=== PATIENT | female | born 1985 | race Hispanic/Latino ===

== ENCOUNTER 2018-01-13 21:14 | Emergency (ER) | payer SELFPAY ==
[2018-01-13 21:23] VITALS: TEMP 99.1
--- NOTE | 2018-01-13 21:26 | C.PDOC ---
History Of Present Illness lynn and gricelda after patient found running on the street. According to jc the patient was in an argument with her significant other. Upon arrival, she was very agitated, combative and violent with staff. Time Seen by Provider: 01/13/18 21:26 Chief Complaint (Nursing): Substance Abuse History Per: Patient History/Exam Limitations: other (extremely combative upon arrival) Onset/Duration Of Symptoms: Hrs Current Symptoms Are (Timing): Still Present Suicide/Self Injury Attempted (Context): None Modifying Factor(s): Alcohol Severity: Severe Pain Scale Rating Of: 6 Associated Symptoms: Anger, Anxiety, Agitation Involuntary Hold By: None Recent travel outside of the [place]: No Additional History Per: EMS Past Medical History Reviewed: Historical Data, Nursing Documentation, Vital Signs Vital Signs: Last Vital Signs Temp 99.1 F 01/13/18 21:18 Pulse 109 H 01/13/18 21:18 Resp 20 01/13/18 21:18 BP 111/71 01/13/18 21:18 Pulse Ox 95 01/13/18 21:18 Family History: States: No Known Family Hx - Social History Hx Alcohol Use: No (unknown) Hx Substance Use: No (unknown) Review Of Systems Review Of Systems: ROS cannot be obtained secondary to pt's inabilty to answer questions. Physical Exam - Physical Exam Appears: Combative, Agitated Skin: Warm, Dry Head: Normacephalic Eye(s): bilateral: Normal Inspection Oral Mucosa: Moist Neck: Supple Chest: Symmetrical Cardiovascular: Rhythm Regular Respiratory: No Rales, No Rhonchi Gastrointestinal/Abdominal: Soft, No Tenderness, No Distention Back: Normal Inspection Extremity: Normal ROM Extremity: Bilateral: Atraumatic Neurological/Psych: Oriented x3 Gait: Unable To Assess ED Course And Treatment - Laboratory Results Result Diagrams: 01/13/18 22:05 01/13/18 22:05 O2 Sat by Pulse Oximetry: 95 (RA) Pulse Ox Interpretation: Normal Reevaluation Time: 06:14 Reassessment Condition: Improved Disposition Counseled Patient/Family Regarding: Studies Performed, Diagnosis, Need For Followup - Disposition Referrals: [facility] [Outside] Disposition: HOME/ ROUTINE Disposition Time: 21:26 Condition: FAIR Instructions: Alcohol Abuse and Alcoholism (DC) Forms: [employer] (Pashto) - Clinical Impression Clinical Impression: Alcohol intoxication - Scribe Statement The provider has reviewed the documentation as recorded by the Scribe (Gissel Brown) Provider Attestation: All medical record entries made by the Scribe were at my direction and personally dictated by me. I have reviewed the chart and agree that the record accurately reflects my personal performance of the history, physical exam, medical decision making, and the department course for this patient. I have also personally directed, reviewed, and agree with the discharge instructions and disposition.
[2018-01-13 22:07] LABS: BASO % 0.4 % (0.0-2.0); EOS % 0.1 % (0.0-4.0); HEMOGLOBIN 14.5 g/dL (11.0-16.0); LYMPH # 1.7 K/uL (1.0-4.3); LYMPH % 17.6 % (20.0-40.0); MEAN CORPUSCULAR HEMOGLOBIN 30.4 pg (27.0-31.0); MEAN CORPUSCULAR HGB CONC 33.7 g/dL (33.0-37.0); MONO # 0.8 K/uL (0.0-0.8); MONO % 8.2 % (0.0-10.0); NEUT # 7.3 K/uL (1.8-7.0); NEUT % 73.7 % (50.0-75.0); RBC 4.77 Mil/uL (3.80-5.20); RED CELL DISTRIBUTION WIDTH 12.6 % (11.5-14.5); WHITE BLOOD COUNT 9.9 K/uL (4.8-10.8)
[2018-01-13 22:20] LABS: ALB/GLOB RATIO 1.6 (1.0-2.1); ALBUMIN 4.6 g/dL (3.5-5.0); ALT/SGPT 36 U/L (9-52); AST/SGOT 43 U/L (14-36); BLOOD UREA NITROGEN 13 mg/dL (7-17); CALCIUM 9.6 mg/dl (8.6-10.4); GFR NON-AFRICAN AMERICAN > 60
[2018-01-13 23:32] LABS: BARBITURATES, UR NEGATIVE (NEGATIVE); BENZODIAZEPINES, UR NEGATIVE (NEGATIVE); OPIATES, UR NEGATIVE (NEGATIVE); PHENCYCLIDINE, UR NEGATIVE (NEGATIVE); SQUAMOUS EPITHIAL < 1 /hpf (0-5); URINE BACTERIA FEW (<OCC); URINE BILIRUBIN NEGATIVE (NEGATIVE); URINE BLOOD NEGATIVE (NEGATIVE); URINE COLOR Yellow (YELLOW); URINE GLUCOSE (UA) NORMAL (Normal); URINE LEUKOCYTE ESTERASE TRACE Leu/uL (Negative); URINE PROTEIN NEGATIVE (NEGATIVE); URINE UROBILINOGEN NORMAL mg/dL (0.2-1.0)
[2018-01-13 23:35] LABS: URINE CLARITY Hazy (Clear)
[2018-01-14 05:47] VITALS: BP 141/73; PULSE 71; RESP 20
[2018-01-14 06:15] VITALS: O2SAT 95
== END 2018-01-14 06:40 | disposition home or self-care (01) ==
LOC: C.ER 21:14
DX: F10.129 Alcohol abuse with intoxication, unspecified (principal); Y90.6 Blood alcohol level of 120-199 mg/100 ml
CPT/HCPCS: 36415; 80053; 81001; 83735; 84100; 84703; 85025; 96372; 99285; G0480; J2060; J3486

== ENCOUNTER 2018-05-19 03:32 | Emergency (ER) | payer MEDICAID ==
[2018-05-19 03:57] VITALS: O2SAT 98
--- NOTE | 2018-05-19 04:39 | C.PDOC ---
History Of Present Illness 32 year old female presents to the ED c/o boil to the left buttock area for the past 2 days. Patient reports pain worsens when seating down, she reports she tried to drained the abscess herself and stuck a safety pin inside. Patient denies fever, chills, rash, drainage. Time Seen by Provider: 05/19/18 04:02 Chief Complaint (Nursing): Abnormal Skin Integrity History Per: Patient History/Exam Limitations: no limitations Onset/Duration Of Symptoms: Days (2) Location Of Injury: Left: Buttock Quality Of Symptoms: Painful, Swollen Recent travel outside of the [place]: No Additional History Per: Patient Past Medical History Reviewed: Historical Data, Nursing Documentation, Vital Signs Vital Signs: Last Vital Signs Temp 98.6 F 05/19/18 03:56 Pulse 93 H 05/19/18 03:56 Resp 20 05/19/18 03:56 BP 110/74 05/19/18 03:56 Pulse Ox 98 05/19/18 03:56 - Medical History PMH: No Chronic Diseases Surgical History: No Surg Hx Family History: States: Unknown Family Hx - Social History Hx Alcohol Use: Yes (unknown) Hx Substance Use: Yes - Immunization History Hx Tetanus Toxoid Vaccination: No Hx Influenza Vaccination: Yes Hx Pneumococcal Vaccination: No Review Of Systems Constitutional: Negative for: Fever, Chills Eyes: Negative for: Pain Cardiovascular: Negative for: Chest Pain Respiratory: Negative for: Cough Gastrointestinal: Negative for: Nausea, Vomiting, Abdominal Pain Musculoskeletal: Positive for: Other (buttock pain) Skin: Positive for: Other (abscess) Neurological: Negative for: Weakness, Numbness Physical Exam - Physical Exam Appears: Non-toxic, No Acute Distress Skin: Normal Color, Warm, Dry Head: Atraumatic, Normacephalic Eye(s): bilateral: Normal Inspection Neck: Normal ROM, Supple Chest: Symmetrical Cardiovascular: Rhythm Regular Respiratory: Normal Breath Sounds, No Rales, No Rhonchi, No Wheezing Gastrointestinal/Abdominal: Soft, No Tenderness, No Guarding, No Rebound Extremity: Normal ROM, No Tenderness, Other (5x6 cm abscess to the left proximal thigh and labia (+) erythema, tenderness) Neurological/Psych: Oriented x3, Normal Speech, Normal Cognition Gait: Steady ED Course And Treatment O2 Sat by Pulse Oximetry: 98 (ON RA) Pulse Ox Interpretation: Normal - Incision & Drainage Of Abscess Anesthesia: Lidocaine 1% Prep Used: Sterile Water, Betadine Procedure: Incised W/Scalpel Blade#: (11), Drained Pus, Irrigated Cavity W/Saline, Probed To Break Up Loculations, Packed W/Gauze, Cultures Obtained And Sent To Lab Disposition - Disposition Referrals: [facility] [Outside] [facility] [Outside] Disposition: HOME/ ROUTINE Disposition Time: 05:58 Condition: GOOD Additional Instructions: Follow uup with the medical doctor within 1-2 days without fail. Return if worsened. 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 - Scribe Statement The provider has reviewed the documentation as recorded by the Scribe Noe Wilhelm All medical record entries made by the Scribe were at my direction and personally dictated by me. I have reviewed the chart and agree that the record accurately reflects my personal performance of the history, physical exam, medical decision making, and the department course for this patient. I have also personally directed, reviewed, and agree with the discharge instructions and disposition.
[2018-05-19 06:28] VITALS: BP 112/82; PULSE 78; RESP 14; TEMP 98.7
== END 2018-05-19 06:27 | disposition home or self-care (01) ==
LOC: C.ER 03:32
DX: L02.416 Cutaneous abscess of left lower limb (principal)

== ENCOUNTER 2018-07-20 19:07 | Emergency (ER) | payer MEDICAID ==
[2018-07-20] MEDS ORDERED: Sodium Chloride 0.9% 1,000 ML ONE (19:23)
[2018-07-20] MEDS ORDERED: Sodium Chloride 0.9% 1,000 ML IV ONE (19:39)
[2018-07-20 19:53] LABS: BASO # 0.2 K/uL (0.0-0.2); BASO % 0.7 % (0.0-2.0); EOS # 0.1 K/uL (0.0-0.7); EOS % 0.5 % (0.0-4.0); HEMOGLOBIN 16.4 g/dL (11.0-16.0); LYMPH # 3.6 K/uL (1.0-4.3); LYMPH % 14.1 % (20.0-40.0); MEAN CELL VOLUME 93.9 fL (81.0-99.0); MEAN CORPUSCULAR HEMOGLOBIN 31.2 pg (27.0-31.0); MEAN CORPUSCULAR HGB CONC 33.2 g/dL (33.0-37.0); MEAN PLATELET VOLUME 8.6 fL (7.2-11.7); MONO # 1.1 K/uL (0.0-0.8); MONO % 4.4 % (0.0-10.0); NEUT # 20.6 K/uL (1.8-7.0); NEUT % 80.3 % (50.0-75.0); RBC 5.25 Mil/uL (3.80-5.20)
[2018-07-20 20:04] LABS: BLOOD UREA NITROGEN 12 mg/dL (7-17); CALCIUM 9.5 mg/dl (8.6-10.4); GFR NON-AFRICAN AMERICAN > 60; LIPASE 100 U/L (23-300)
[2018-07-20 20:06] LABS: WHITE BLOOD COUNT 25.6 K/uL (4.8-10.8)
[2018-07-20 20:10] LABS: BARBITURATES, UR NEGATIVE (NEGATIVE); BENZODIAZEPINES, UR NEGATIVE (NEGATIVE); OPIATES, UR NEGATIVE (NEGATIVE); PHENCYCLIDINE, UR NEGATIVE (NEGATIVE)
[2018-07-20 20:11] LABS: ALB/GLOB RATIO 1.5 (1.0-2.1); ALBUMIN 5.2 g/dL (3.5-5.0); ALT/SGPT 20 U/L (9-52); AST/SGOT 36 U/L (14-36)
[2018-07-20 20:18] LABS: HCG,QUALITATIVE URINE NEGATIVE (NEGATIVE)
[2018-07-20 20:30] LABS: SQUAMOUS EPITHIAL 6 /hpf (0-5); URINE BILIRUBIN NEGATIVE (NEGATIVE); URINE BLOOD NEGATIVE (NEGATIVE); URINE CLARITY Hazy (Clear); URINE COLOR Amber (YELLOW); URINE GLUCOSE (UA) NORMAL (Normal); URINE LEUKOCYTE ESTERASE NEG Leu/uL (Negative); URINE PROTEIN 2+ mg/dL (NEGATIVE)
--- NOTE | 2018-07-20 20:44 | C.PDOC ---
History Of Present Illness Patient is a 32 year old female who presents to the ED c/o severe vomiting that began this morning. Patient reports that she drank a fifth of gina last night and that this is more than she typically drinks because she is not a daily drinker. She also reports feeling very anxious and that she developed diarrhea once in the ED. She denies any abdominal pain, fever, chills, SOB, or CP. Time Seen by Provider: 07/20/18 19:35 Chief Complaint (Nursing): Abdominal Pain History Per: Patient History/Exam Limitations: no limitations Onset/Duration Of Symptoms: Hrs Current Symptoms Are (Timing): Still Present Associated Symptoms: Vomiting, Diarrhea, Other (anxious). denies: Fever, Chills Recent travel outside of the [place]: No Additional History Per: Patient Past Medical History Reviewed: Historical Data, Nursing Documentation, Vital Signs Vital Signs: Last Vital Signs Temp 98.2 F 07/20/18 19:10 Pulse 96 H 07/20/18 19:10 Resp 28 H 07/20/18 19:10 BP 131/77 07/20/18 19:10 Pulse Ox 100 07/20/18 19:10 - Medical History PMH: No Chronic Diseases Surgical History: No Surg Hx Family History: States: Unknown Family Hx - Social History Hx Alcohol Use: Yes (unknown) Hx Substance Use: Yes - Immunization History Hx Tetanus Toxoid Vaccination: No Hx Influenza Vaccination: Yes Hx Pneumococcal Vaccination: No Review Of Systems Constitutional: Negative for: Fever, Chills Cardiovascular: Negative for: Chest Pain Respiratory: Negative for: Shortness of Breath Gastrointestinal: Positive for: Vomiting, Diarrhea. Negative for: Abdominal Pain Psych: Positive for: Anxiety. Negative for: Suicidal ideation, Other (HI) Physical Exam - Physical Exam Appears: Non-toxic, No Acute Distress, Other (uncomfortable, not able to sit still, anxious, attempting to induce vomiting by sticking fingers down throat) Skin: Warm, Dry Head: Atraumatic, Normacephalic Oral Mucosa: Moist Neck: Normal ROM, Supple Chest: Symmetrical, No Deformity Cardiovascular: Rhythm Regular, No Murmur Respiratory: Normal Breath Sounds, No Rales, No Rhonchi, No Wheezing Gastrointestinal/Abdominal: Soft, No Tenderness Extremity: Normal ROM Neurological/Psych: Oriented x3 ED Course And Treatment - Laboratory Results Result Diagrams: 07/20/18 19:46 07/20/18 19:46 Lab Results: Total Bilirubin 0.7 mg/dL (0.2-1.3) 07/20/18 19:46 AST 36 U/L (14-36) 07/20/18 19:46 ALT 20 U/L (9-52) 07/20/18 19:46 Alkaline Phosphatase 120 U/L (38-126) 07/20/18 19:46 Total Protein 8.6 g/dL (6.3-8.3) H 07/20/18 19:46 Albumin 5.2 g/dL (3.5-5.0) H 07/20/18 19:46 Globulin 3.5 gm/dL (2.2-3.9) 07/20/18 19:46 Albumin/Globulin Ratio 1.5 (1.0-2.1) 07/20/18 19:46 Lipase 100 U/L (23-300) 07/20/18 19:46 Urine Color Ani (YELLOW) 07/20/18 19:46 Urine Clarity Hazy (Clear) 07/20/18 19:46 Urine pH 5.0 (5.0-8.0) 07/20/18 19:46 Ur Specific [place] 1.028 (1.003-1.030) 07/20/18 19:46 Urine Protein 2+ mg/dL (NEGATIVE) H 07/20/18 19:46 Urine Glucose (UA) Normal mg/dL (Normal) 07/20/18 19:46 Urine Ketones Trace mg/dL (NEGATIVE) 07/20/18 19:46 Urine Blood Negative (NEGATIVE) 07/20/18 19:46 Urine Nitrate Negative (NEGATIVE) 07/20/18 19:46 Urine Bilirubin Negative (NEGATIVE) 07/20/18 19:46 Urine Urobilinogen 2.0 mg/dL (0.2-1.0) H 07/20/18 19:46 Ur Leukocyte Esterase Neg Manuel/uL (Negative) 07/20/18 19:46 Urine WBC (Auto) 3 /hpf (0-5) 07/20/18 19:46 Urine RBC (Auto) 1 /hpf (0-3) 07/20/18 19:46 Ur Squamous Epith Cells 6 /hpf (0-5) H 07/20/18 19:46 Urine HCG, Qual Negative (NEGATIVE) 07/20/18 19:46 Urine HCG, Qual Negative (NEGATIVE) 07/20/18 19:46 ECG: Interpreted By Me, Viewed By Me ECG Rhythm: Sinus Rhythm Interpretation Of ECG: Normal axis, slightly prolonged QTC, no ST elevetion, no ST changes Rate From EC O2 Sat by Pulse Oximetry: 100 - CT Scan/US CT A&P Other Rad Studies (CT/US): Read By Radiologist, Radiology Report Reviewed CT/US Interpretation: EXAM: CT Abdomen and Pelvis with IV contrast. CLINICAL HISTORY: Abd pain. TECHNIQUE: Axial computed tomography images of the abdomen and pelvis with intravenous contrast. 0.00 mGy-cm. CONTRAST: With; 100MLS VISI 320. COMPARISON: None provided. FINDINGS: LUNG BASES: The lung bases appear clear. No pleural effusions are seen. LIVER: Unremarkable. GALLBLADDER AND BILE DUCTS: The gallbladder appears within normal limits. No radioopaque gallstones are seen. No biliary ductal dilatation is evident. PANCREAS: Unremarkable. SPLEEN: Unremarkable. ADRENAL GLANDS: Unremarkable. KIDNEYS, URETERS, AND BLADDER: The kidneys appear within normal limits. There is no hydronephrosis or hydroureter. No urinary calculi are seen. The urinary bladder is normal in size and configuration. There is questionable subtle perivesical haziness present. Also, a small focus of gas is seen in the anterior superior left bladder lumen. These findings could represent acute cystitis with a gas forming microorganism. STOMACH AND BOWEL: Unremarkable appearance of the stomach and bowel. No evidence of bowel obstruction. No evidence suggesting enteritis or colitis. The colon is completely decompressed throughout its course. APPENDIX: No evidence of acute appendicitis on CT examination. PERITONEUM: No free fluid. No free air. LYMPH NODES: No lymphadenopathy is evident. REPRODUCTIVE: Unremarkable as visualized. VASCULATURE: No evidence of abdominal aortic aneurysm. BONES: No aggressive appearing osseous lesion. No acute osseous pathology evident. IMPRESSION: 1. Findings suggestive of subtle acute cystitis; possibly with gas forming microorganism. 2. The colon is completely decompressed. . Electronically signed on Jul 20, 2018 9:51:16 PM EDT by: Apollo Zendejas M.D., M.B.A., Certified By ABR. Fellowship Trained MRI and CT Specialist Medical Decision Making Medical Decision Making: Plan: CAT A&P EKG Labs Urinalysis Ativan 1mg IVP Zofran 4mg IVP IV Fluids Patient given 1L NS bolus and zofran ivp. Labs done. Marked leukocytosis noted, so CT abd/pelvis ordered for further evaluation. Patient states that she feels extremely anxious. She is unable to sit still in her stretcher, constantly writhing around (although denies any pain) and attempting to self induce vomiting. 1mg ativan ivp given. Patient was more calm on re-eval. CT done. On re-eval, patient sleeping comfortably. CT results noted. No evidence of UTI on UA, however given finding of possible acute cystitis on CT, plus patient's leukocytosis, will give abx. Rx also written for zofran PO. Patient states that she feels much better and is comfortable going home. Disposition - Disposition Disposition: HOME/ ROUTINE Disposition Time: 23:11 Condition: STABLE Additional Instructions: LILIANA MIN, thank you for letting us take care of you today. Your provider was Jennifer Major MD and you were treated for VOMITING. The emergency medical care you received today was directed at your acute symptoms. If you were prescribed any medication, please fill it and take as directed. It may take se veral days for your symptoms to resolve. Return to the Emergency Department if your symptoms worsen, do not improve, or if you have any other problems. Please contact your doctor or call one of the physicians/clinics you have been referred to that are listed on the Patient Visit Information form that is included in your discharge packet. Bring any paperwork you were given at discharge with you along with any medications you are taking to your follow up visit. Our treatment cannot replace ongoing medical care by a primary care provider outside of the emergency department. Thank you for allowing the [facility] team to be part of your care today. If you had an X-Ray or CT scan: A Radiologist will review the ED reading if any change in treatment is needed we will contact you. If you had a blood, urine, or wound culture: It will take several days for the results, if any change in treatment is needed we will contact you. If you had an STI test: It will take 48 hours for the results. Please call after 1 week if you have not heard back. Prescriptions: Nitrofurantoin Monohyd/M-Cryst [Macrobid 100 mg Capsule] 100 mg PO BID #14 capsule Ondansetron ODT [Zofran ODT] 4 mg PO TID PRN #10 odt PRN Reason: Nausea/Vomiting Instructions: Acute Cystitis (DC), Alcohol Abuse and Alcoholism (DC) Forms: [email or web address] ([place]) - Clinical Impression Clinical Impression: Alcohol abuse, Cystitis - Scribe Statement The provider has reviewed the documentation as recorded by the Joe Barnett All medical record entries made by the Joe were at my direction and personally dictated by me. I have reviewed the chart and agree that the record accurately reflects my personal performance of the history, physical exam, medical decision making, and the department course for this patient. I have also personally directed, reviewed, and agree with the discharge instructions and disposition.
[2018-07-20] MEDS ORDERED: Iodixanol 320 MG/ML 100 ML BOTTLE IV ONE (20:50)
[2018-07-20 23:12] VITALS: BP 131/85; PULSE 92; RESP 18; TEMP 98.7
[2018-07-20 23:57] VITALS: O2SAT 100
--- NOTE | 2018-07-21 08:39 | CT ---
Date of service: 07/20/2018 PROCEDURE: CT Abdomen and Pelvis with contrast HISTORY: abd pain COMPARISON: None. TECHNIQUE: Contrast dose: 100 mL Visipaque 320 Radiation dose: Total exam DLP = 543.54 mGy-cm. This CT exam was performed using one or more of the following dose reduction techniques: Automated exposure control, adjustment of the mA and/or kV according to patient size, and/or use of iterative reconstruction technique. FINDINGS: LOWER THORAX: Unremarkable. LIVER: Unremarkable. No gross lesion or ductal dilatation. GALLBLADDER AND BILE DUCTS: Unremarkable. PANCREAS: Unremarkable. No gross lesion or ductal dilatation. SPLEEN: Unremarkable. ADRENALS: Unremarkable. No mass. KIDNEYS AND URETERS: Unremarkable. No hydronephrosis. No solid mass. VASCULATURE: Unremarkable. No aortic aneurysm. No aortic atherosclerotic calcification or mural plaque present. BOWEL: Unremarkable. No obstruction. No gross mural thickening. APPENDIX: Normal appendix. PERITONEUM: Unremarkable. No free fluid. No free air. LYMPH NODES: Unremarkable. No enlarged lymph nodes. BLADDER: Poorly distended. Very small amount of gas. Question is raised regarding catheterization. REPRODUCTIVE: Normal uterus BONES: No acute fracture. OTHER FINDINGS: None. IMPRESSION: Small amount of gas in urinary bladder, possibly from catheterization. Please correlate. Otherwise unremarkable examination. The preliminary findings for this examination were reported by [facility] at 9:51 p.m. on 07/20/2018. There is concurrence of this report with the preliminary findings.
--- NOTE | 2018-07-24 19:43 | CARD ---
APPROVED REPORT Date of service: 07/20/2018 EKG Measurement Heart [id number] <Conclusion> Normal sinus rhythm with sinus arrhythmia Prolonged QT Abnormal ECG
== END 2018-07-20 23:12 | disposition home or self-care (01) ==
LOC: C.ER 19:07
DX: F10.10 Alcohol abuse, uncomplicated (principal); N30.90 Cystitis, unspecified without hematuria; Y90.9 Presence of alcohol in blood, level not specified
CPT/HCPCS: 74177; 80053; 80324; 80345; 80346; 80349; 80353; 80358; 80361; 81001; 83690; 83992; 84703; 85025; 96361; 96374; 96375; 99284; J2060; J2405; J7030; Q9967